=== PATIENT | male | born 1985 | race Caucasian/White ===

== ENCOUNTER 2019-02-12 00:21 | Emergency (ER) | payer MEDICAID ==
[~2019-02-12] VITALS: Ht 185.4 cm; Wt 72.6 kg
[2019-02-12] MEDS ORDERED: PENICILLIN G BENZ 1200000 UNITS/2 ML SYRG IM ONE (04:30)
[2019-02-12] MEDS ORDERED: AZITHROMYCIN 250 MG TAB PO ONE (04:30)
[2019-02-12] MEDS ORDERED: cefTRIAXone SOD 1,000 MG VL IM ONE (04:30)
[2019-02-12 05:53] VITALS: BP 137/87
== END 2019-02-12 06:02 | disposition home or self-care (01) ==
LOC: ER 00:26
DX: A53.9 Syphilis, unspecified (principal); R21 Rash and other nonspecific skin eruption
CPT/HCPCS: 96372; 99283; J0561; J0696